=== PATIENT | male | born 1990 | race Caucasian/White ===

== ENCOUNTER 2025-06-25 07:19 | Emergency (ER) | payer OTHER, SELFPAY ==
--- NOTE | ~2025-06-25 | XR_ITS ---
EXAMINATION: XR FINGERS LEFT HISTORY: Lac on L thumb COMPARISON: There are no prior studies available for comparison. FINDINGS: Three views of the left thumb are submitted. Osseous mineralization is normal. There is no fracture or dislocation. The joint spaces are preserved. There is a soft tissue injury overlying the proximal phalanx. XR/XR finger LT min 2V IMPRESSION: No osseous abnormality. Electronically signed by: Dwight Dsouza MD 06/25/2025 08:04 AM LIZ
[2025-06-25 07:20] VITALS: BP 163/69; PULSE 89; RESP 20; TEMP 37; O2SAT 98; BMI 24.1
[2025-06-25] MEDS: Lidocaine HCl 1 % 20 ML VIAL SUBCUT (08:45)
--- NOTE | 2025-06-25 08:51 | ED_ITS ---
HPI - Wound/Laceration General Chief Complaint: Wound/Laceration Stated Complaint: cut on thumb Time Seen by Provider: 06/25/25 07:21 Source: patient Mode of arrival: ambulatory Limitations: no limitations History of Present Illness ED Provider: GAURI Mancera HPI narrative: Chief Complaint: ?I cut my left thumb with a razor blade at work earlier today and it won?t stop bleeding.? 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 The cut was immediately deep and ?quick to gush.? He rinsed it briefly under water at work but performed no further wound care before arrival. Continues to have oozing through the bandage. Denies feeling light- headed or squeamish. Unsure of last tetanus vaccination. No other injuries reported. Patient is right-handed. 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 Related Data Allergies Allergy/AdvReac Type Severity Reaction Status Date / Time No Known Allergies Allergy Verified 06/25/25 07:27 Review of Systems Review of Systems: Review of Systems: * Integumentary: Positive for left thumb laceration with bleeding and pain. * Constitutional: Denies light-headedness. Yes all other systems are reviewed and are negative PMFSH Past Medical History Attestation statement: The following information was validated with the patient. Source: old records reviewed and nursing notes reviewed Social History Social History Advance Directives: No Advance Directives Information Provided: No Physical Exam Exam: Exam: Physical Exam: * General: Alert, in no acute distress. * Left thumb: Approximately ?paper-thin? slicing laceration 4 cm on the lateral (outer/herrera) aspect of the thumb with active oozing. Edges thin and fragile. No foreign body visualized. * MSK: b/l UE distal sensation intact, b/l UE cap refil <2, nailbeds all intact b/l * CV/Resp: no signs of cardiopulmonary distress Vital Signs: Vital Signs: Last Vital Signs Temp 98.6 F 06/25/25 07:20 Pulse 89 06/25/25 07:20 Resp 20 06/25/25 07:20 BP 163/69 H 11/28/25 07:20 Pulse Ox 98 06/25/25 07:20 O2 Del Method Room Air 06/25/25 07:20 BMI result Body Mass Index 24.1 vss Course Reevaluation(s) Reevaluation #1: Procedures Performed * Irrigation to left finger * Local anesthesia with lidocaine 1 % 5 ml * Simple interrupted closure with 4 sutures; outermost superficial segment closed with dermal adhesive ( dermabond). One suture loop intentionally left loose to preserve fragile tissue. * Pressure dressing and butterfly support applied. * Tetanus booster planned; patient unsure of last tetanus vaccination. Time: 08:55 Reevaluation #2: Patient advised to return in 7-10 days. Educated patient on diagnosis and treatment plan, answered all question, patient verbalizes understanding. At this time patient will be discharged home, advised to return with new or wor sening symptoms. Educated on worrisome signs and symptoms and when to return. At this time I feel comfortable discharge home. Time: 08:55 Medical Decision Making Medical Decision Making [facility] Narrative: 0855 Brief clinical summary: Deep razor-blade laceration of the left thumb with fragile skin edges successfully closed with sutures and glue; tetanus prophylaxis provided. Problem #1: Left thumb laceration Assessment: Acute deep slicing laceration to the outer aspect of left thumb from razor blade. Edges fragile but approximated with 4 sutures and dermal adhesive. Bleeding controlled. Plan: * Wound care completed as above. * Keep dressing clean, dry, and intact; avoid bending the left thumb. * Return in 7?10 days for suture removal (may return here or visit urgent care). * Return sooner for increased pain, swelling, redness, drainage, or uncontrolled bleeding. Differential Diagnosis Differential Diagnoses: The differential diagnosis associated with the presentation includes This is likely a simple laceration. No signs of fracture, dislocation no signs of neurovascular compromise or acute threat to limb. Admission/Observation Consideration of admission/observation: Escalation of care including admission/observation considered (no indication ) Independent Interpretation I performed an independent interpretation of an: Plain X-Ray (L hand xray no fx ) Radiology Impression Discussion of test interpretation with radiology: I have reviewed the radiologist's reading. Chronic Conditions Patient?s care impacted by: Other (denies) Procedures Laceration Laceration 1: Site: hand (L thumb palmar aspect ) Side (If applicable): left Size (cm): 4 Description: linear Depth: simple, single layer Local Anesthetic: lidocaine 1% Amount of anesthesia used (mL): 5 Pre-repair: wound explored, irrigated extensively, deep structures intact and extensive debridement Skin layer closed with: nylon Size (cm): 4-0 Number of sutures: 4 Discharge Plan Discharge Clinical Impression: Laceration Patient Disposition: Home, Self-Care Additional Instructions: Take your medications as prescribed. If you were prescribed antibiotics today, it is important that you take your medication to their entirety, do not skip any doses, do not finish them early. Follow-up with your primary care provider this week. Return to the emergency department with new or worsening symptoms. Such as fevers, chills, chest pain, shortness of breath, nausea, vomiting, dizziness, headache, vision changes, lethargy In case of emergency call 911 Return in 7-10 days for suture removal Referrals: Physician,None [Primary Care Provider, Medical] - 1 week Referral Note: Suture removal Print Language: Indonesian
[2025-06-25] MEDS: Diphth,Pertus(ACell),Tet Adult 0.5 ML SYRINGE IM (09:01)
--- NOTE | 2025-06-25 09:10 | PC.NURSE ---
This RN brought pt back to room as when he was leaving the ED his finger started to gush blood again, pt brought back to room DC provider aware, pressure dressing being applied at this time
--- NOTE | 2025-06-25 09:24 | PC.NURSE ---
Upon d/c pt L thumb began to re-bleed. GAURI Perze made aware. Laceration cleaned and redressed- bleeding controlled at this time.
--- NOTE | 2025-06-25 09:26 | PC.NURSE ---
Upon d/c pt L thumb began to re-bleed at distal edge of suture line. GAURI Perez made aware. Laceration cleaned and suture line assessed. Four sutures and dermabond remains fully intact with no gaping or suture disruption. Pressure dressing applied; bleeding controlled. Patient advised to keep dressing clean/dry and monitor for increased bleeding, redness/swelling, or pain.
[2025-06-25 09:29] VITALS: BP 163/69; PULSE 89; RESP 20; TEMP 37; O2SAT 98
== END 2025-06-25 09:29 | disposition home or self-care (01) ==
PROVIDERS: Emergency Provider Emergency Medicine
DX: S61.012A Laceration without foreign body of left thumb without damage to nail, initial encounter (principal); W26.9XXA Contact with unspecified sharp object(s), initial encounter; Y93.9 Activity, unspecified; Y92.9 Unspecified place or not applicable; Y99.8 Other external cause status; Z23 Encounter for immunization
CPT/HCPCS: 12002; 73140; 90471; 90715; 99284; J2003

== ENCOUNTER → 2025-06-25 07:40 | Outpatient (BNV) | payer OTHER, SELFPAY | PROVIDERS: Emergency Provider Emergency Medicine; Visit Provider Radiology Diagnostic Radiology | DX: S61.012A Laceration without foreign body of left thumb without damage to nail, initial encounter (principal) | CPT/HCPCS: 73140 ==

== ENCOUNTER 2025-07-05 09:09 | Emergency (ER) | payer OTHER, SELFPAY ==
--- NOTE | ~2025-07-05 | XR_ITS ---
EXAMINATION: XR FINGERS LEFT HISTORY: 5th digit with swelling COMPARISON: Comparison is made with the prior examination dated 06/17/2025. FINDINGS: Three views of the left thumb are submitted. Osseous mineralization is normal. There is no fracture or dislocation. The joint spaces are preserved. There is soft tissue swelling. XR/XR finger LT min 2V IMPRESSION: Soft tissue swelling. No osseous abnormality is identified. Electronically signed by: Dwight Dsouza MD 07/05/2025 10:59 AM LIZ
[2025-07-05 09:12] VITALS: BP 142/66; PULSE 79; RESP 16; TEMP 36.2; O2SAT 98; BMI 25.2
--- NOTE | 2025-07-05 10:24 | ED_ITS ---
HPI - General Adult General Chief complaint: General Medical Stated complaint: Suture Removal Time Seen by Provider: 07/05/25 09:30 Source: patient, RN notes reviewed and old records reviewed Mode of arrival: ambulatory Limitations: no limitations History of Present Illness ED Provider: MAIN Knight HPI narrative: 34-year-old male without any known medical history presents to the ED for suture removal. Patient states he cut his thumb on a brand new razor blade when doing work on a mud flap on 06/25 and had 4 sutures placed with tetanus vaccination administered. Patient returns today for suture removal but is concerned as he feels the thumb is swollen with fluid but denies any drainage. Patient reports decreased sensation over the laceration area. Denies fevers, chills, chest pain, shortness of breath, abdominal pain, nausea, vomiting, urinary symptoms. MD complaint: suture removal Related Data Previous Rx's ?Medication ?Instructions ?Recorded cephalexin 500 mg capsule 500 mg PO QID 7 days #28 cap s 07/05/25 Allergies Allergy/AdvReac Type Severity Reaction Status Date / Time No Known Allergies Allergy Verified 07/09/25 09:16 Review of Systems Review of Systems: Yes all other systems are reviewed and are negative PMFSH Past Medical History Attestation statement: The following information was validated with the patient. 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 HEENT: ?NC, AT. MMM. EOMI, clear conjunctiva, oropharynx clear. NECK: ?Supple without lymphadenopathy.? No stiffness or restricted ROM. HEART:? Normal rate and regular rhythm, normal S1/S2, no m/r/g LUNGS:? CTAB, moving air well. No crackles or wheezes are heard. ABDOMEN: ?Soft, nontender, nondistended with good bowel sounds heard. BACK: No CVAT, no obvious deformity. EXTREMITIES: ?Without cyanosis, clubbing or edema. L 5th digit with mild swelling, no warmth or erythema to the area, the thumb is healing well, mild numbness over the laceration area, appropriate refill capillary time, radial pul ses 2+, the hand is neurovascularly intact NEUROLOGICAL: ?Grossly nonfocal. Alert and oriented, moving all 4 extremities. Observed to ambulate with normal gait. Skin: ?Warm and dry without any rash. Medical Decision Making Medical Decision Making [facility] Narrative: 34-year-old male without any known medical history presents to the ED for suture removal. Patient states he cut his thumb on a brand new razor blade when doing work on a mud flap on 06/25 and had 4 sutures placed with tetanus vaccination administered. Patient returns today for suture removal but is concerned as he feels the thumb is swollen with fluid but denies any drainage. Patient reports decreased sensation over the laceration area. Plan: XR L hand XR imaging negative for foreign body, osteomyelitis. Patient presents to the ED for suture removal. XR imaging of the left thumb is negative for foreign body, or deeper tissue infection. Patient had 4 sutures removed from the left thumb, and handled the procedure well without bleeding, No purulent drainage from the thumb. The area has mild erythema and edema but has full range of motion of the thumb, the area over the laceration has some decreased sensation however appropriate capillary refill time, radial pulses 2+. Patient will be discharged home with 7 day course of Keflex q.i.d. for bacterial coverage, and referral to Orthopedics for further evaluation and management. Patient well enough to go home for self-care, and is in agreement with the plan. Differential Diagnosis Differential Diagnoses: The differential diagnosis associated with the presentation includes Cellulitis Hematoma Abscess Admission/Observation Consideration of admission/observation: Escalation of care including admission/observation considered Lab Data [facility] Lab Attestation statement: I reviewed the patient's lab results. Independent Interpretation I performed an independent interpretation of an: Plain X-Ray Interpretation: I personally interpreted the XR L hand Radiology Impression Discussion of test interpretation with radiology: I have reviewed the radiologist's reading. Radiologist Impression: XR L hand FINDINGS: Three views of the left thumb are submitted. Osseous mineralization is normal. There is no fracture or dislocation. The joint spaces are preserved. There is soft tissue swelling. XR/XR finger LT min 2V IMPRESSION: Soft tissue swelling. No osseous abnormality is identified. Electronically signed by: Dwight Dsouza MD 07/05/2025 10:59 AM EST Dictated By: Dwight Dsouza MD Signed By: <Electronically signed by Dwight Dsouza MD in OV> 07/05/25 1059 External Record Review External record reviewed: Inpatient record, Office record and Outpatient record Prescription Management I considered prescription management with: Antibiotic Patient with an injury of his left thumb while using a straight major to do work on mud flap. The left thumb is mildly erythematous with mild edema, patient is being discharged with a 7 day course of Keflex q.i.d. for bacterial coverage. Chronic Conditions Patient?s care impacted by: Other (No known medical history) Discharge Plan Discharge Clinical Impression: Cellulitis Patient Disposition: Home, Self-Care Instructions: Cellulitis (ED) Additional Instructions: You were evaluated in the ED for suture removal to the L thumb. 4 sutures were removed. The Xray of your thumb shows mild soft tissue swelling without extensive infection. You are being prescribed a 7 day course of Keflex which is an antibiotic that you will take 4 times daily for bacterial coverage. Please complete the entire course. To manage pain and swelling at home I recommend that you take 500 mg of Tylenol, and 400 mg of ibuprofen every 6 hours, ice the area, and elevate the hand when possible. I have placed referral to our hand specialist for you to follow up with due to areas of numbness/tingling. Please call their office as they will not call you Please return to the emergency department if you have fevers over 100.4? that are not managed by Tylenol/Motrin, increased pain of the left thumb, decreased mobility of the left thumb/hand, increased numbness and tingling, redness, warmth or coolness to the limb or any new/worsening/concerning symptoms Prescriptions: New cephalexin 500 mg capsule 500 mg PO QID 7 Days Qty: 28 0RF Referrals: [facility] [Provider Group] Interventions: ED Discharge Assessment Last Done: 07/05/25 11:27 Discharge Date/Time: 07/05/25 11:28 Print Language: Citizen Of [place]
[2025-07-05 11:27] VITALS: BP 146/68; PULSE 72; RESP 16; TEMP 36.6; O2SAT 98
== END 2025-07-05 11:28 | disposition home or self-care (01) ==
PROVIDERS: Emergency Provider Student in an Organized Health Care Education/Training Program
DX: L03.012 Cellulitis of left finger (principal); R60.0 Localized edema; Z48.02 Encounter for removal of sutures
CPT/HCPCS: 73140; 99282; 99283

== ENCOUNTER → 2025-07-05 10:28 | Outpatient (BNV) | payer OTHER, SELFPAY | PROVIDERS: Emergency Provider Student in an Organized Health Care Education/Training Program; Visit Provider Radiology Diagnostic Radiology | DX: M79.89 Other specified soft tissue disorders (principal) | CPT/HCPCS: 73140 ==

== ENCOUNTER 2025-07-09 08:54 | Outpatient (AMB) | payer OTHER, SELFPAY ==
[2025-07-09 09:11] VITALS: BMI 25.1
--- NOTE | 2025-07-09 09:11 | A.OFFVIS_ITS ---
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 States while working he cut his left thumb open with a razor blade. Seen at [facility] where he had sutures. He was complaining of numbness on medial aspect of hand which is better today. He is limited ROM and has tenderness. 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 States while working he cut his left thumb open with a razor blade, while attempting to cut a mud flap at work. Patient states that he was Seen at [facility] ED where he had sutures, placed, and removed a proximally one-week later. He was complaining of numbness on medial aspect of hand which is better today. He is limited ROM and has tenderness. Patient does report he is able to flex and extend the left thumb. 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 Neuro: Diminished sensation noted on the radial aspect of the left thumb Normal sensation of the tips of all digits of the left hand at this time Vascular: Cap refill brisk Pain: Some tenderness to palpation noted around the area of laceration of the left thumb ROM: Patient is able to flex and extend at all digits of the left thumb Skin: There is an approximately 4 cm laceration noted on the volar aspect of the left thumb just proximal to the MCP joint Some edema surrounding this laceration, no erythema or other evidence of infection General: No ecchymosis, erythema, or evidence of infection. Psych: Appears grossly normal Affect normal Attitude cooperative Assessment & Plan Assessment & Plan (1) Laceration of thumb, left: Code(s): S61.012A - Laceration without foreign body of left thumb without damage to nail, initial encounter Category: Medical Plan 1. Left thumb laceration No evidence of tendon laceration Likely laceration or injury to radial digital nerve of left thumb, patient would not like any surgical intervention Date of injury 06/25/2025 Patient is educated about this injury Patient is educated about the typical treatment course At this time, patient is informed that there is no acute surgical intervention indicated for this injury, as there is no evidence of true flexor tendon laceration, as he does have active flexion at all joints of the left thumb Patient is educated he should continue to keep a dressing on the laceration while out and about, can leave open to air and wash with soap and water while at home Normal sensation may or may not return to the radial aspect of the left thumb Patient understands this and is amenable to this plan Follow-up in 2-3 weeks for reassessment, sooner with any acute concerns Coding Level of Care Code New Pt Level 3 (07629) Diagnoses Laceration of thumb, left S61.012A
== END 2025-07-09 09:23 | disposition home or self-care (01) ==
LOC: HO.HOS 08:54
DX: S61.012A Laceration without foreign body of left thumb without damage to nail, initial encounter (principal)
CPT/HCPCS: 99203

== ENCOUNTER → 2025-07-09 08:54 | Outpatient (BNVA) | payer OTHER, SELFPAY | DX: S61.012A Laceration without foreign body of left thumb without damage to nail, initial encounter (principal); W26.8XXA Contact with other sharp object(s), not elsewhere classified, initial encounter; Y93.89 Activity, other specified; Y92.89 Other specified places as the place of occurrence of the external cause; Y99.0 Civilian activity done for income or pay | CPT/HCPCS: 99202 ==